=== PATIENT | female | born 1965 | race Caucasian/White ===

== ENCOUNTER 2016-10-14 06:27 | Emergency (ER) | payer MEDICAID ==
[2016-10-14] MEDS ORDERED: Sodium Chloride 0.9% 10 ML Syringe FLUSH PRN (06:48)
[2016-10-14] MEDS ORDERED: Hyoscyamine 0.125 MG Tab.SL SL ONE (06:48)
[2016-10-14] MEDS ORDERED: Ondansetron 4 MG/2 ML SDV IVPUSH ONE (06:48)
[2016-10-14] MEDS ORDERED: Sodium Chloride 0.9% 500 ML IV ONE (06:48)
--- NOTE | 2016-10-14 06:59 | EDM.PDOC ---
<Juvencio Love - Last Filed: 10/15/16 14:29> ED HPI GI/ABDOMINAL - General Chief Complaint: Gastrointestinal Problem Stated Complaint: [facility] Time Seen by Provider: 10/14/16 06:36 Source of Information: Reports: Patient, EMS, RN notes reviewed - History of Present Illness INITIAL COMMENTS - FREE TEXT/NARRATIVE: 51-year-old female has been brought in by [facility] evaluation of severe upper, RUQ pain. She had acute onset of the pain about 2 AM, about 4-1/2 hours ago. Pain has been upper mid abdomen more intense right upper mid abdomen with radiation to her back. There's been a constant ache with superimposed sharp cramping type discomfort. She experienced nausea with this, made herself vomit but that did not relieve the pain. The pain was colicky in nature, she was unable to find any position of comfort. Finally not knowing what else to do she did call the ambulance. She was given 1 mg Dilaudid IV in route and the pain has subsided from severe to much more tolerable but still present. She denies prior history of known gallbladder disease. She is relatively healthy with no known major medical problems. She's been entirely free of any type of abdominal discomfort in recent days and weeks up until early this morning. She did eat shrimp last evening along with cottage cheese and salad. - Related Data Allergies/ADRs: Allergies Allergy/AdvReac Type Severity Reaction Status Date / Time No Known Allergies Allergy Verified 10/14/16 06:33 Home Meds: Home Meds Escitalopram [Lexapro] 20 mg PO DAILY 10/14/16 [History] Estradiol [Estrace] 4 mg PO DAILY 10/14/16 [History] Past Medical History Psychiatric History: Reports: Anxiety Social & Family History - Tobacco Use Smoking Status *Q: Current Some Day Smoker Years of Tobacco use: 30 Packs/Tins Daily: 0.2 Used Tobacco, but Quit: No Second Hand Smoke Exposure: No - Caffeine Use Caffeine Use: Reports: Coffee - Recreational Drug Use Recreational Drug Use: No ED ROS GENERAL - Review of Systems Review Of Systems: See Below Constitutional: Denies: fever, chills, diaphoresis HEENT: Denies: Throat pain Respiratory: Reports: Cough (occasional chronic, nonproductive). Denies: Shortness of Breath, Pleuritic Chest Pain Cardiovascular: Denies: Chest pain GI/Abdominal: Reports: Abdominal pain (right upper quadrant upper midabdomen with radiation to back), Constipation, Nausea, Vomiting (patient did make herself vomit once). Denies: Diarrhea : Reports: no symptoms Musculoskeletal: Reports: back pain Skin: Reports: no symptoms Neurological: Reports: No Symptoms ED EXAM, GI/ABD - Physical Exam Exam: See Below General Appearance: alert, no apparent distress Eyes: bilateral: normal appearance Throat/Mouth: Normal inspection, Normal oropharynx Head: atraumatic Neck: supple, full range of motion Respiratory/Chest: no respiratory distress, lungs clear, normal breath sounds Cardiovascular: regular rate, rhythm GI/Abdominal: soft, tenderness (moderate upper mid abdomen and right upper quadrant). No: guarding, rebound Back Exam: No: CVA tenderness (L), CVA tenderness (R) Extremities: normal inspection, normal range of motion. No: pedal edema Skin Exam: Warm, Dry, Normal color Course - Vital Signs Last Recorded V/S: Last Vital Signs Temp 36.4 C 10/14/16 06:30 Pulse 68 10/14/16 09:50 Resp 16 10/14/16 09:50 BP 129/65 10/14/16 09:50 Pulse Ox 100 10/14/16 09:50 - Orders/Labs/Meds Labs: Laboratory Tests 10/14/16 10/14/16 10/14/16 Range/Units 06:32 06:32 06:32 WBC 11.89 H (3.98-10.04) K/mm3 RBC 4.35 (3.98-5.22) M/mm3 Hgb 13.8 (11.2-15.7) gm/L Hct 40.4 (34.1-44.9) % MCV 92.9 (79.4-94.8) fl MCH 31.7 (25.6-32.2) pg MCHC 34.2 (32.2-35.5) g/dl RDW Std Deviation 44.6 (36.4-46.3) fL Plt Count 222 (182-369) K/mm3 MPV 11.5 (9.4-12.3) fl Neut % (Auto) 82.4 H (34.0-71.1) % Lymph % (Auto) 11.4 L (19.3-51.7) % [place] % (Auto) 4.4 L (4.7-12.5) % Eos % (Auto) 1.3 (0.7-5.8) Baso % (Auto) 0.3 (0.1-1.2) % Neut # 9.81 H (1.56-6.13) K/mm3 Lymph # 1.36 (1.18-3.74) K/mm3 [place] # 0.52 H (0.24-0.36) K/mm3 Eos # 0.15 (0.04-0.36) K/mm3 Baso # 0.03 (0.01-0.08) K/mm3 Sodium 137 (136-145) mEq/L Potassium 4.2 (3.5-5.1) mEq/L Chloride 102 (98-107) mEq/L Carbon Dioxide 25 (21-32) mEq/L Anion Gap 14.2 (5-15) BUN 13 (7-18) mg/dL Creatinine 0.9 (0.55-1.02) mg/dL Est Cr Clr Drug Dosing 62.42 mL/min Estimated GFR (MDRD) > 60 (>60) mL/min BUN/Creatinine Ratio 14.4 (14-18) Glucose 107 H (74-106) mg/dL Calcium 9.2 (8.5-10.1) mg/dL Total Bilirubin 0.3 (0.2-1.0) mg/dL GGT 11 (5-55) U/L AST 17 (15-37) U/L ALT 21 (14-59) U/L Alkaline Phosphatase 67 (46-116) U/L C-Reactive Protein 2.1 H* (<1.0) mg/dL Total Protein 7.0 (6.4-8.2) g/dl Albumin 3.6 (3.4-5.0) g/dl Globulin 3.4 gm/dL Albumin/Globulin Ratio 1.1 (1-2) Lipase 160 (73-393) U/L Meds: Medications Discontinued Medications Generic Name Dose Route Start Last Admin Trade Name Freq PRN Reason Stop Dose Admin Hyoscyamine 0.125 mg 10/14/16 06:48 10/14/16 06:54 Hyomax-Sl SL 10/14/16 06:49 0.125 mg ONETIME ONE Administration Sodium Chloride 500 mls @ 999 mls/hr 10/14/16 06:48 10/14/16 06:55 Normal Saline IV 10/14/16 07:18 999 mls/hr .BOLUS ONE Administration Sodium Chloride 1,000 mls @ 125 mls/hr 10/14/16 07:30 Normal Saline IV ASDIRECTED JERRY Ketorolac Tromethamine 30 mg 10/14/16 07:00 10/14/16 06:56 Toradol IVPUSH 30 mg ONETIME JERRY Administration Ondansetron HCl 4 mg 10/14/16 06:48 10/14/16 06:55 Zofran IVPUSH 10/14/16 06:49 4 mg ONETIME ONE Administration Sodium Chloride 10 ml 10/14/16 06:48 10/14/16 06:57 Saline Flush FLUSH 10 ml ASDIRECTED PRN Administration Keep Vein Open - Re-Assessments/Exams Free Text/Narrative Re-Assessment/Exam: 10/14/16 07:05 change of shift. Will transfer care to Dr Li. Have ordered appropriate labs, did receive 1 mg Dilaudid in route and that has helped reduce her pain substantially. I have further ordered Levsin 0.125 mg sublingual, Toradol 30 mg IV, Zofran 4 mg IV and some IV fluid. Ultrasound of abdomen has also been ordered and hopefully can be done shortly. She has not eaten since about 9:00 last evening around 10 hours ago. Departure - Departure Disposition: Home, Self-Care 01 Clinical Impression: Abdominal pain, Biliary colic symptom Instructions: Biliary Colic Referrals: Hanh Monge [employer] [Primary Care Provider] - Forms: ED Department Discharge Additional Instructions: Evaluation in the emergency room today in regards to awakening from sleep with acute onset of severe epigastric right upper quadrant abdominal pain radiating through to the back under the right shoulder blade. Associated nausea and vomiting. History is compatible with biliary colic which means acute spasm of the duct that to next the gallbladder to the common bile duct. Ultrasound of the gallbladder was performed in the emergency room and was negative for stones or thickening of the gallbladder wall. 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 Lab tests revealed no signs of pancreatitis or evidence of biliary tree obstruction. Essentially they were normal. Because of the highly suspicious nature of biliary colic as the cause of your pain tonight I would suggest having followup HIDA scan to see her gallbladder is functioning normally. X-ray will arrange this and give you a call with the date and time that he both can agree on. In the meantime avoid fats is much as possible. To date Gatorade Powerade and carbohydrates only. If similar type pain occurs again I did write a prescription for Levsin tablets 0.125 mg under the tongue and in 5-7 minutes after the first of her pain is not better or only partially better take a second tablet take. Taking more than 2 tablets is unlikely to be beneficial. The next step would be to take Percocet tablets 5-25 mg strength x2 with Zofran 4 mg under the tongue to abort the attack. Height is scan report will be sent to your care provider Hanh Monge in [place]. Please follow for about 2 days after the test carried out to find out the results. <Nahum Li - Last Filed: 10/18/16 19:11> Course - Re-Assessments/Exams Free Text/Narrative Re-Assessment/Exam: 10/14/16 08:15 GB ultrasound has been completed. He does not reveal any stones. Gallbladder wall is normal common bile duct appears normal as well. The lab tests reveal a white count of 11.89 with 82% neutrophils. Hemoglobin 13.8 hematocrit 40.4 CRP is mildly elevated at 2.1. Sodium 137 potassium 4.2 lipase is 160. 10/14/16 08:37patient remains pain free. She's a little dry the mouth little drowsy from the dialogue but I believe. She is to call for arrived and therefore will be here for at least another hour until someone from [facility] can arrive and pick her up. Her IV will be left in until that time frame. She'll start clear fluids such as Gatorade or Powerade in the emergency room. I will have her booked for a HIDA scan as an outpatient since her history was so compatible with a biliary colic attack. These results are to be sent initial heart rate her normal care provider in [place]. Departure - Departure Time of Disposition: 08:32 Condition: fair
[2016-10-14] MEDS ORDERED: Ketorolac 30 MG/ML SDV IVPUSH SCH (07:00)
[2016-10-14] MEDS ORDERED: Sodium Chloride 0.9% 1,000 ML IV SCH (07:30)
--- NOTE | 2016-10-14 08:13 | US ---
Limited abdominal ultrasound: Multiple real-time images of the upper right abdomen were obtained. Hyperechoic lesion is identified within the right lobe of the liver next to the diaphragm measuring approximately 3.1 cm in size. No additional abnormality is seen within the liver. Gallbladder shows no gallstones. No gallbladder wall thickening or biliary duct dilatation is seen. Right kidney shows no hydronephrosis or mass and has a length of 11.9 cm. Pancreas incompletely seen. Visualized portions of the pancreas are unremarkable. Impression: 1. Hyperechoic lesion within the right lobe the liver. This most likely represents a hemangioma although CT study is recommended as a hemangioma protocol to confirm. 2. Other portions of the right upper quadrant abdominal ultrasound are unremarkable. Diagnostic code #3
[2016-10-14 09:59] VITALS: BP 129/65
== END 2016-10-14 09:55 | disposition home or self-care (01) ==
LOC: JD.ED 06:27
DX: R10.11 Right upper quadrant pain (principal); F17.210 Nicotine dependence, cigarettes, uncomplicated; F41.9 Anxiety disorder, unspecified; Z79.899 Other long term (current) drug therapy
CPT/HCPCS: 36415; 76705; 80053; 82977; 83690; 85025; 86140; 96361; 96374; 96375; 99285; A9270; J1885; J2405; J7040; J7050; 99284